=== PATIENT | female | born 1995 | race Caucasian/White ===

== ENCOUNTER → 2018-07-21 14:10 | Outpatient (CLI) | payer BC, SELFPAY ==
[2018-07-25 12:49] LABS: AFP, Serum 80.5 ng/mL; Calc Gestational Age 18.7; Cigarette Smoker NOT GIVEN; Donated Egg N; Donor Egg Age NOT GIVEN; Estriol, Free 1.52 ng/mL; Inhibin A, Dimeric 136 pg/mL; Maternal Weight 186 lbs; Number of Fetuses 1; Previous Pregnancy Down Syndro N; hCG, MoM 1.58; hCG, Serum 30.8 IU/mL
== END ==
PROVIDERS: Visit Provider Obstetrics & Gynecology
DX: Z34.92 Encounter for supervision of normal pregnancy, unspecified, second trimester (principal); Z3A.18 18 weeks gestation of pregnancy
CPT/HCPCS: 36415; 82105; 82677; 84702; 86336; 87086

== ENCOUNTER → 2018-08-04 09:25 | Outpatient (CLI) | payer BC, SELFPAY ==
--- NOTE | 2018-08-04 09:27 | DI.US.S_ITS ---
PROCEDURE: US OB >= 14 WEEKS FETUS INDICATIONS: anatomy survey OUTSIDE/PRIOR DATING DATA: Last menstrual period (LMP): 02/27/18. LMP-based estimated date of delivery (DEDRICK): 12/04/18. First dating scan (date and location): 04/25/18. Estimated date of delivery (DEDRICK) from first dating scan: 12/17/18, plus or -5 days, based on the reported early first trimester OB ultrasound performed at [facility]. TECHNIQUE: Real-time scanning was performed of the fetus, with image documentation and biometric measurements. Endovaginal scanning: Not needed for this study COMPARISON: [facility], , US OB >= 14 WEEKS FETUS, 07/21/2018, 13:58. FINDINGS: General: A single living intrauterine gestation is present. Presentation: Vertex. Placenta: Placental position is anterior, without previa. Amniotic fluid index: 14.4 cm, normal range is 5-24 cm. heart rate: 155 beats per minute. Maternal cervical canal: 4.6 cm long. Normal lower limit is 2.5 cm. biometrics: Biparietal diameter: 5.1 cm, 21 weeks 3 days Head circumference: 19.2 cm, 21 weeks 3 days Abdominal circumference: 15.5 cm, 20 weeks 5 days Femur length: 3.6 cm, 21 weeks 2 days Estimated gestational age from initial scan: 20 weeks 5 days Composite gestational age from present scan: 21 weeks 2 days Estimated weight and percentile: 393 g, 62nd percentile, there has been appropriate interval growth. Measurement variability for biometric dating: +/- 7 days from 14 weeks to 15 weeks 6 days gestation, +/- 10 days from 16 weeks to 21 weeks 6 days gestation, +/- 2 weeks from 22 weeks to 27 weeks 6 days gestation, +/- 3 weeks for 28 weeks gestation or later. weight reference: 4500 g or EFW >90/95% is considered macrosomia or large for gestational age. EFW <10% is small for gestational age. EFW 5% or less is considered intra-uterine growth restriction. Anatomic survey: Neuro: Ventricles are non-dilated at less than 10 mm. Cisterna magna is normal at 3-11 mm. Cerebellum is normal in size and morphology. Nuchal skin fold: Normal at less than 6 mm between 14-21 weeks gestational age. Face: Nose and lips, facial profile are normal. Spine: No evidence for spina bifida. Heart: 4-chambered heart is present, with normal ventricular outflow tracts. Diaphragm: Diaphragm is intact. Stomach: Left-sided stomach is present. Kidneys: No hydronephrosis. Normal is less than 5 mm in 2nd trimester, less than 7 mm in 3rd trimester. Cord: 3-vessel cord has orthotopic insertion. Bladder: Normal in size. Extremities: All 4 extremities identified. IMPRESSION: Appropriate interval growth, no anomaly seen, the delivery date is projected to be centered on 12/17/18, plus or -5 days, based on the early first trimester OB ultrasound from [facility]. Dictated by: Jani Valladares M.D. on 08/04/2018 at 11:40 Approved by: aJni Valladares M.D. on 08/04/2018 at 11:45
== END ==
PROVIDERS: Family Provider Physician Assistant Medical; Visit Provider Obstetrics & Gynecology
DX: Z34.02 Encounter for supervision of normal first pregnancy, second trimester (principal); Z3A.21 21 weeks gestation of pregnancy
CPT/HCPCS: 76811

== ENCOUNTER → 2018-08-26 10:35 | Outpatient (CLI) | payer BC, SELFPAY ==
[2018-08-26 12:17] LABS: Hematocrit 32.1 % (36-46)
[2018-08-26 13:40] LABS: GTT (PREG) 1 Hour PP 50gm Dose 104 mg/dL (76-139)
[2018-08-26 15:27] LABS: Urine N gonorrhoeae NOT DETECTED
[2018-08-26 15:33] LABS: Urine Chlamydia NOT DETECTED
== END ==
PROVIDERS: Family Provider Physician Assistant Medical; Visit Provider Obstetrics & Gynecology
DX: Z34.92 Encounter for supervision of normal pregnancy, unspecified, second trimester (principal); Z34.02 Encounter for supervision of normal first pregnancy, second trimester
CPT/HCPCS: 36415; 82950; 85014; 85018; 86787; 87491; 87591

== ENCOUNTER 2018-10-27 15:06 | Observation (INO) | payer BC, SELFPAY | END 2018-10-27 15:51 | disposition home or self-care (01) | PROVIDERS: Admitting Provider Obstetrics & Gynecology; Family Provider Physician Assistant Medical; Visit Provider Obstetrics & Gynecology | DX: O26.843 Uterine size-date discrepancy, third trimester; Z3A.32 32 weeks gestation of pregnancy | CPT/HCPCS: 59025; G0378; G0379 ==

== ENCOUNTER 2018-11-03 08:55 | Outpatient (CLI) | payer BC, SELFPAY ==
--- NOTE | 2018-11-03 10:10 | PM.OBTRLD ---
Visit Information Visit Information Date of evaluation: 11/03/18 Reason for Evaluation: Yes non-stress test Vital Signs Vital Signs: NST for patient done today. Reactive category 1.
== END 2018-11-03 10:00 | disposition home or self-care (01) ==
LOC: LABOR 10:11 → OB 15:16
PROVIDERS: Family Provider Physician Assistant Medical; Visit Provider Obstetrics & Gynecology
DX: Z36.9 Encounter for antenatal screening, unspecified (principal); Z3A.33 33 weeks gestation of pregnancy
CPT/HCPCS: 59025; G0378; G0379

== ENCOUNTER 2018-11-11 13:51 | Outpatient (CLI) | payer BC, SELFPAY | END 2018-11-11 14:40 | disposition home or self-care (01) | LOC: LABOR 14:22 → OB 11-12 12:53 | PROVIDERS: Visit Provider Obstetrics & Gynecology | DX: Z34.03 Encounter for supervision of normal first pregnancy, third trimester (principal); Z3A.35 35 weeks gestation of pregnancy | CPT/HCPCS: 59025; 87653; G0378; G0379 ==

== ENCOUNTER → 2018-11-11 14:46 | Outpatient (CLI) | payer BC, SELFPAY ==
[2018-11-12 12:36] LABS: Strep Grp B PCR NEG for Grp B Strep
== END ==
PROVIDERS: Visit Provider Obstetrics & Gynecology
DX: Z34.03 Encounter for supervision of normal first pregnancy, third trimester (principal)
CPT/HCPCS: 87653

== ENCOUNTER 2018-11-17 09:23 | Outpatient (CLI) | payer BC, SELFPAY ==
--- NOTE | 2018-11-17 10:32 | PM.OBTRLD ---
Visit Information Visit Information Date of evaluation: 11/17/18 Primary OB Provider: Aditi Menesse On-call OB Provider: Luz Maria De La Rosa Reason for Evaluation: Yes non-stress test non-stress test reason: other (hx of demise) Evaluation Evaluation Baseline heart rate: 130 Variability: Moderate (11-25) monitor accelerations: Present monitor decelerations: Absent Category of Tracing: I Diagnosis, Plan/Disposition Final Diagnosis (1) Prior with demise: Current Visit: No Status: Chronic Plan/Disposition Plan: Reactive NST today Continue regular NSTs F/U with primary OB as scheduled OB Disposition: home
== END 2018-11-17 10:32 | disposition home or self-care (01) ==
LOC: LABOR 09:40 → OB 11-18 16:38
PROVIDERS: Visit Provider Obstetrics & Gynecology
DX: O09.293 Supervision of pregnancy with other poor reproductive or obstetric history, third trimester (principal); Z3A.35 35 weeks gestation of pregnancy
CPT/HCPCS: 59025; G0378; G0379

== ENCOUNTER 2018-11-26 10:39 | Outpatient (CLI) | payer OTHER, SELFPAY | END 2018-11-26 11:40 | disposition home or self-care (01) | LOC: LABOR 10:58 → OB 12-02 07:43 | PROVIDERS: Visit Provider Obstetrics & Gynecology | DX: O09.293 Supervision of pregnancy with other poor reproductive or obstetric history, third trimester (principal); Z3A.37 37 weeks gestation of pregnancy | CPT/HCPCS: 59025; G0378; G0379 ==

== ENCOUNTER 2018-12-03 14:52 | Outpatient (CLI) | payer OTHER, SELFPAY | END 2018-12-03 15:46 | disposition home or self-care (01) | LOC: OB 12-09 13:05 | PROVIDERS: Visit Provider Obstetrics & Gynecology | DX: Z34.03 Encounter for supervision of normal first pregnancy, third trimester (principal); Z3A.38 38 weeks gestation of pregnancy | CPT/HCPCS: 59025; G0378; G0379 ==

== ENCOUNTER 2018-12-08 10:52 | Outpatient (CLI) | payer BC, SELFPAY ==
--- NOTE | 2018-12-08 18:24 | PM.OBTRLD ---
Visit Information Visit Information Date of evaluation: 12/08/18 Primary OB Provider: Aditi Meneses Reason for Evaluation: Yes non-stress test non-stress test reason: other (history of stillbirth) Evaluation Evaluation Baseline heart rate: 145 Variability: Moderate (11-25) monitor accelerations: Present monitor decelerations: Absent Category of Tracing: I Diagnosis, Plan/Disposition Final Diagnosis (1) 38 weeks gestation of : Current Visit: No Status: Acute (2) Prior with demise: Current Visit: No Status: Acute Plan/Disposition Plan: Discharge to home Follow up as scheduled for routine OB appointment [facility] reviewed. OB Disposition: home
== END 2018-12-08 11:37 | disposition home or self-care (01) ==
LOC: LABOR 11:32 → OB 12-09 13:07
PROVIDERS: Visit Provider Obstetrics & Gynecology
DX: O09.299 Supervision of pregnancy with other poor reproductive or obstetric history, unspecified trimester (principal); Z3A.38 38 weeks gestation of pregnancy
CPT/HCPCS: 59025; G0378; G0379

== ENCOUNTER 2018-12-11 05:34 | Inpatient (IN) | payer BC, SELFPAY ==
[2018-12-11] MEDS: LACTATED RINGERS 1,000 ML 999 ML IV ×2 (06:15→06:55)
[2018-12-11 06:58] LABS: Add Manual Diff / Slide Review NO; Basophils Absolute Auto 100 /uL (0-100); Basophils Percent Auto 0.7 % (0-2); Eosinophils Absolute Auto 0 /uL (0-450); Eosinophils Percent Auto 0.6 % (2-4); Hemoglobin 10.5 g/dL (12.0-16.0); Lymphocytes Absolute Auto 1500 /uL (1100-4500); Lymphocytes Percent Auto 18.3 % (25-40); Mean Corpuscular Hemoglobin 26.2 PG (26-34); Mean Corpuscular Volume 79.3 fL (80-100); Monocytes Absolute Auto 700 /uL (0-900); Monocytes Percent Auto 7.9 % (3-14); Neutrophils Absolute Auto 6000 /uL (1500-7000); Neutrophils Percent Auto 72.5 % (50-75); Platelet Count 232 X10^3/uL (150-400); Red Blood Cell Count 4.03 X10^6/uL (4.0-5.2); Red Cell Distribution Width 14.3 % (11.6-14.8); White Blood Cell Count 8.3 X10^3/uL (4.5-11.0)
--- NOTE | 2018-12-11 07:16 | PM.PREOP ---
Pre-operative Note Interval Note History & Physical reviewed/Exam performed by Physician: Yes Changes to H&P: No
--- NOTE | 2018-12-11 09:23 | P.OP_ITS ---
Operative Date/Time/Diagnoses Date of procedure: 12/11/18 Time of procedure: 09:19 Pre-op diagnosis: Thirty-nine weeks gestation History of demise at 23 weeks Desires primary section Post-op diagnosis: same Procedure: Primary low-transverse section Indications: Thirty-nine weeks gestation History of demise at 23 weeks Desires primary section Surgeon: Aditi Meneses Logging Rafter Laborer: Juan Villa Anesthesia Type: Spinal (With Duramorph) Operative Notes Findings: Live male in the left occiput posterior presentation Normal uterus, tubes, and ovaries Closure Type: primary Specimen(s): other (Cord bloods, placenta) Applied: catheter (Beck to continuous drainage) Estimated blood loss (mL): 600 Blood products transfused: none Procedure in detail: The patient was taken to the operating room where she was placed in the seated position. Spinal anesthesia with Duramorph was administered. She was then placed in the dorsal supine position with a leftward tilt. She was prepped and draped in the usual sterile fashion. A timeout was performed. After spinal analgesia was found to be adequate, a Pfannenstiel skin incision was made 2 fingerbreadths above the pubic symphysis and carried through to the underlying layer fascia. The fascia was nicked in the midline, and the incision extended bilaterally with the Alexandre scissors. The superior aspect of the fascial incision was grasped with a Funmilayo clamps, elevated, and the und erlying rectus muscles dissected off sharply and bluntly. Attention was then turned to the inferior aspect of this incision which in a similar fashion was grasped with a Funmilayo clamps, elevated, and the underlying rectus muscles dissected off sharply and bluntly. The rectus muscles were in the midline. The peritoneum was identified, grasped between 2 hemostats, and entered sharply with the Metzenbaum scissors. This incision was extended superiorly and inferiorly with good visualization of the bladder. The bladder blade was inserted. The vesicouterine peritoneum was identified, grasped with the pickup, and entered sharply with the Metzenbaum scissors. This incision was extended bilaterally, and the bladder flap was created digitally. The bladder blade was reinserted. The lower uterine segment was incised in a transverse fashion with the scalpel. Upon entering the amniotic sac there was a large amount of clear amniotic fluid. The infant's head was delivered with vacuum assistance. The uterine incision was T'd. The nose and mouth were suctioned with bulb suction. The remainder of the body delivered without difficulty. The cord was double clamped and cut. The infant was handed off to waiting RN and RT. The placenta was delivered manually. The uterus was cleared of all clots and debris. The extension of the uterus was closed in 2 layers with 1. Chromic. The uterine incision was repaired with #1 chromic in a running interlocking fashion, and a second layer the same suture was used for an imbricating layer. Hemostasis was achieved. The tubes and ovaries were examined and were found to be normal. The gutters were cleared of all clots and debris. The bladder flap was reapproximated using 2-0 Vicryl in a running fashion. The parietal peritoneum was closed using 2-0 Vicryl in a running fashion. The fascia was reapproximated using 0 Vicryl in a running fashion. Subcutaneous layer was copiously irrigated with warm normal saline. Six simple interrupted sutures of 3-0 Vicryl were placed to reapproximate the subcutaneous layer. The skin was closed with 4-0 undyed Vicryl in a subcuticular fashion. Steri-Strips were placed. An Aquacel dressing was placed. The uterus was expressed of a small amount of old blood. Sponge, lap, and instrument counts were correct x-2. The patient tolerated the procedure well, and was taken to PACU in stable condition. Complications: none Post-operative Condition: stable Disposition: PACU Plan for aftercare: To Center after recovery
[2018-12-11] MEDS: LACTATED RINGERS 1,000 ML 100 ML IV (10:10)
[2018-12-11] MEDS: OXYCODONE/ACETAMINOPHEN 5/325 TABLET 2 TAB PO ×4 (12:15→21:04)
[2018-12-11] MEDS: KETOROLAC 30 MG/ML VIAL IV ×2 (17:02→23:27)
[2018-12-12] MEDS: OXYCODONE/ACETAMINOPHEN 5/325 TABLET 2 TAB PO ×3 (02:45→11:47)
[2018-12-12] MEDS: KETOROLAC 30 MG/ML VIAL IV (05:25)
[2018-12-12 06:46] LABS: Hematocrit 24.4 % (36-46); Hemoglobin 8.2 g/dL (12.0-16.0)
[2018-12-12] MEDS: DOCUSATE 250 MG CAPSULE PO (07:45)
[2018-12-12] MEDS: IBUPROFEN 600 MG TABLET PO ×3 (11:48→23:50)
--- NOTE | 2018-12-12 14:31 | PM.OBPN.1 ---
Subjective - OB Patient comments: no complaints and incisional pain baby status: doing well and nursing well feeding status: exclusively breast feeding Narrative: some problems with Jaundice Interval history: Patient one day post section and doing well. Patient is a small amount of left-sided incisional pain. Patient has an Aquacel dressing. She is afebrile stable vital signs. She is ambulating well. She is taking p.o. well. Exam Narrative Exam Narrative: Fundus U minus two Incision covered by Aquacel dressing Lochia scant Objective Labs Result Diagrams: 12/12/18 06:22 Labs: Laboratory Results - last 24 hr 12/12/18 06:22 Hgb 8.2 L Hct 24.4 L Assessment & Plan Plan day: 1 plan OB: routine postop care Time Spent With Patient Total time spent is greater than 50% in coordination of care (as documented) at patient's floor/unit and/or counseling patient: less than 15 minutes
[2018-12-12] MEDS: OXYCODONE IR 5 MG TABLET 10 MG PO ×3 (16:05→22:44)
[2018-12-12] MEDS: LANOLIN OINT 7 GM 1 APPLIC TOP (16:06)
[2018-12-12 18:20] VITALS: BP 133/75
[2018-12-12] MEDS: ACETAMINOPHEN 325 MG TABLET 650 MG PO (22:59)
[2018-12-13] MEDS: OXYCODONE IR 5 MG TABLET 10 MG PO ×4 (01:42→11:19)
[2018-12-13] MEDS: ACETAMINOPHEN 325 MG TABLET 650 MG PO ×2 (04:40→11:19)
[2018-12-13] MEDS: IBUPROFEN 600 MG TABLET PO (06:25)
[2018-12-13] MEDS: PRENATAL VIT,CALC/IRON/FOLIC 1 TABLET 1 TAB PO (08:13)
[2018-12-13] MEDS: DOCUSATE 250 MG CAPSULE PO (08:13)
--- NOTE | 2018-12-13 08:32 | PM.OBDS.1 ---
Discharge Providers Date of admission: 12/11/18 05:34 Discharge Date: 12/13/18 Primary care physician: Aditi Meneses Consults: 12/11/18 10:34 Consult to Apparel Sales Associate Routine Comment: Discharge provider: Virgilio Sherwood MD Summary Date Patient Seen: 12/13/18 Time Patient Seen: 08:38 Procedures: Spinal anesthesia Repeat section, Rainey type Hospital Course: The patient is a 23-year-old two now para one with a history of a 23 week demise. The patient elected to have a primary section because her prior history. She was taken to surgery where she underwent a primary low segment section occurred type. Her course was uneventful. She remained afebrile stable vital signs and was progressively element and ambulated. Peripartum Data Delivery Method: Section Procedures: Primary low segment section complications: none Status at Discharge Cognitive/behavioral status at discharge: oriented Functional status at discharge: independent ambulation Overall status at discharge: patient is progressing back to baseline Time Spent with Patient Total time spent providing and/or coordinating discharge services: Less than 30 minutes Objective Labs Result Diagrams: 12/12/18 06:22 Exam Narrative Exam Narrative: HEENT within normal limits Chest clear percussion auscultation Cardiovascular system normal sinus rhythm Fundus is U minus three Incision covered with an Aquacel dressing Lochia scant Discharge Plan Discharge Plan Patient Disposition: Home Discharge comment: Call with fever, chills, redness or drainage around incisions or bleeding vaginally more than a pad in an hour Discharge Med Rec/Prescriptions Prescriptions: New oxycodone-acetaminophen [Percocet] 5-325 mg tablet 1 tab PO Q4-6H PRN (Reason: pain) Qty: 30 RF: 0 docusate sodium [Colace] 100 mg capsule 100 mg PO BEDTIME Qty: 20 RF: 2 ibuprofen 600 mg tablet 600 mg PO TID Qty: 20 RF: 2 docusate sodium [Colace] 100 mg capsule 100 mg PO BEDTIME Qty: 20 RF: 2 docusate sodium 250 mg Capsule 250 mg PO DAILY Qty: 10 RF: 0 ferrous gluconate 324 mg (38 mg iron) Tablet 324 mg PO DAILY Qty: 60 RF: 0 ibuprofen 600 mg Tablet 600 mg PO Q6HR PRN (Reason: As Needed For Fever/Mild Pain) Qty: 20 RF: 0 Jwk-P-Vfdvtg Cream 1 applic topical PRN PRN (Reason: ) Qty: 1 RF: 0 oxycodone 5 mg Tablet 10 mg PO Q3HR PRN (Reason: Pain, Severe (7-10)) Qty: 20 RF: 0 Prenatabs Rx 29 mg iron- 1 mg Tablet 1 tab PO DAILY Qty: 60 RF: 0 Continued albuterol sulfate [Ventolin HFA] 90 mcg/actuation HFA aerosol inhaler 1 puff INHALATION Q6H PRN (Reason: Shortness Of Breath) RF: 0 prenat.vits,esteban,ocy-xxpt-otyyl tablet 1 tab PO DAILY RF: 0 buspirone 10 mg Tablet 20 mg PO BID RF: 0 Double Electric Breast Pump packet RF: 0 Discontinued triamcinolone acetonide 0.1 % lotion 1 applictn TOP DAILY RF: 0 Follow up/Referrals: Virgilio Sherwood MD [Physician] - Nova Rojas PA-C [Primary Care Provider] - Aditi Meneses MD [Physician] - 1 Week Provider Discharge Instructions Diet: Diet as Tolerated Activity: Up ad dejon Skin/Wound/Dressing Care Report to your healthcare provider any signs of infection, such as:: chills, fever, increased pain, unusual drainage and unusual redness Dressing: Aquacel dressing Other wound treatment: None Discharge Data Primary Care Provider: Nova Rojas Attending Provider: Aditi Meneses Admit Date/Time: 12/11/18 05:34
[2018-12-13 09:36] VITALS: BP 130/88; PULSE 87; RESP 16; TEMP 37
== END 2018-12-13 12:26 | disposition home or self-care (01) | DRG 788 ==
PROVIDERS: Admitting Provider Obstetrics & Gynecology; PCP Physician Assistant Medical; Visit Provider Obstetrics & Gynecology
DX: O26.893 Other specified pregnancy related conditions, third trimester (principal); Z3A.39 39 weeks gestation of pregnancy; Z37.0 Single live birth
CPT/HCPCS: 36415; 59050; 59510; 59514; 85014; 85018; 85025; 86850; 86900; 86901; G0379; J0690; J1200; J1885; J2274; J2590; J3010

== ENCOUNTER → 2020-04-11 15:23 | Outpatient (CLI) | payer BC, SELFPAY ==
--- NOTE | 2020-04-11 | DI.CT.S_ITS ---
PROCEDURE: CT SINUS SCREEN WO CON INDICATIONS: Other chronic sinusitis TECHNIQUE: Noncontrast 3.0 mm axial images acquired from the frontal sinuses to the mid-sella, with coronal and sagittal reformats. For radiation dose reduction, the following was used: automated exposure control, adjustment of mA and/or kV according to patient size. COMPARISON: None. FINDINGS: Image quality: Excellent. Maxillary Sinuses: No bony remodeling or destruction. Sinuses are clear. Ethmoid Air Cells: No bony remodeling or destruction. Sinuses are clear. Sphenoid Sinuses: No bony remodeling or destruction. Sinuses are clear. Frontal Sinuses: No bony remodeling or destruction. Sinuses are clear. Ostiomeatal Complexes: Ostiomeatal complexes are patent. No Hailey cells. Miscellaneous: Visualized intra-orbital contents are normal. No serge bullosa or paradoxical turbinate curvature. No nasal septal deviation. IMPRESSION: No findings of acute or chronic sinusitis. Dictated by: Sourav Pate M.D. on 04/11/2020 at 15:41 Approved by: Sourav Pate M.D. on 04/11/2020 at 15:42
== END ==
PROVIDERS: PCP Physician Assistant Medical; Referring Provider Otolaryngology; Visit Provider Otolaryngology
DX: J32.8 Other chronic sinusitis (principal)
CPT/HCPCS: 70486

== ENCOUNTER → 2020-05-09 13:40 | Outpatient (CLI) | payer BC, SELFPAY ==
[2020-05-11 13:59] LABS: Add Manual Diff / Slide Review NO; Basophils Absolute Auto 0 /uL (0-100); Basophils Percent Auto 0.5 % (0-2); Eosinophils Absolute Auto 100 /uL (0-450); Eosinophils Percent Auto 1.9 % (2-4); Hematocrit 36.5 % (36-46); Hemoglobin 12.1 g/dL (12.0-16.0); Lymphocytes Absolute Auto 1800 /uL (1100-4500); Lymphocytes Percent Auto 31.9 % (25-40); Mean Corpuscular HGB Conc 33.2 % (30-36); Mean Corpuscular Hemoglobin 29.9 PG (26-34); Mean Corpuscular Volume 90.2 fL (80-100); Monocytes Absolute Auto 400 /uL (0-900); Neutrophils Absolute Auto 3200 /uL (1500-7000); Neutrophils Percent Auto 57.7 % (50-75); Platelet Count 216 X10^3/uL (150-400); Red Blood Cell Count 4.05 X10^6/uL (4.0-5.2); Red Cell Distribution Width 14.1 % (11.6-14.8); White Blood Cell Count 5.6 X10^3/uL (4.5-11.0)
[2020-05-12 08:12] LABS: Immunoglobulin A 179 mg/dL (87-352); Immunoglobulin G, Quantitative 866 mg/dL (586-1602); Immunoglobulin M, Quantitative 95 mg/dL (26-217)
[2020-05-14 19:27] LABS: Immunoglobulin E 10 IU/mL (6-495)
== END ==
PROVIDERS: PCP Physician Assistant Medical
DX: L27.2 Dermatitis due to ingested food (principal); H65.90 Unspecified nonsuppurative otitis media, unspecified ear
CPT/HCPCS: 36415; 82784; 82785; 83516; 85025; 86003; 86317; 86355; 86357; 86359

== ENCOUNTER → 2020-06-22 09:36 | Outpatient (CLI) | payer BC, SELFPAY ==
[2020-06-22 11:05] LABS: COVID19 -Nasal RAPID Negative (Negative)
== END ==
PROVIDERS: PCP Physician Assistant Medical; Visit Provider Physician Assistant
DX: Z11.59 Encounter for screening for other viral diseases (principal)
CPT/HCPCS: 87635

== ENCOUNTER 2020-06-23 10:06 | Day surgery (SDC) | payer BC, SELFPAY ==
[2020-06-21 13:51] VITALS: BMI 30.6
[2020-06-23] VITALS (16 sets, daily range): BP systolic 106–136; BP diastolic 63–90; PULSE 72–124; RESP 8–96; TEMP 36.2–37.2; O2SAT 12–100; BMI 32.3
[2020-06-23] MEDS: LACTATED RINGERS 1,000 ML 42 ML IV ×2 (10:46→13:22)
--- NOTE | 2020-06-23 11:59 | PM.PREOP ---
Pre-operative Note COVID-19 COVID-19 status: Negative Result date/Date tested (Pos, Neg/Pending): 06/22/20 Interval Note History & Physical reviewed/Exam performed by Physician: Yes Changes to H&P: No
--- NOTE | 2020-06-23 12:01 | PM.HP.1 ---
History of Present Illness History of Present Illness Date Patient Seen: 06/23/20 Time Patient Seen: 12:01 Chief complaint: Chronic tonsillitis, tonsil stones, halitosis Narrative: 24-year-old female with a history of chronic tonsillitis, tonsil stones, halitosis, and throat pain, presents for tonsillectomy and possible adenoidectomy. No interval health changes, denies current cough, cold, or fever. Patient History Medical History Earache Facial pain Halitosis Hearing loss Sinusitis Tonsil stone Surgical History S/P section (12/11/18) Family & Social History Social History: household members significant other,children Tobacco & Substance use: Tobacco type cigarettes Smoking Status Former smoker alcohol intake current alcohol intake frequency holiday/special occasion Substance Use Type does not use Meds Home Medications and Allergies Home Medications Medication Instructions Recorded Confirmed Type albuterol sulfate 90 mcg/actuation 1 puff INHALATION Q6H PRN 06/17/18 06/23/20 History aerosol inhaler vit,rhzw10-phsm-jcyko 1 tab PO DAILY #60 tab 12/13/18 06/23/20 Rx [Prenatabs Rx] norethindrone (contraceptive) 0.35 0.35 mg PO DAILY #84 tab 01/01/20 06/23/20 Rx mg tablet divalproex 1,500 mg PO QPM 06/21/20 06/23/20 History nifedipine [Procardia] 10 mg PO QPM 06/21/20 06/23/20 History dextroamphetamine-amphetamine 10 mg PO DAILY 06/23/20 06/23/20 History epinephrine 0.3 mg IM PRN PRN 06/23/20 06/23/20 History Allergies Allergy/AdvReac Type Severity Reaction Status Date / Time gluten Allergy Severe Anaphylaxis Verified 12/11/18 14:49 sumatriptan Allergy Severe Hives, Verified 06/21/20 14:00 throat closing venlafaxine [From Effexor] Allergy Severe Hives, Verified 06/21/20 14:00 throat closing, fever beef derived (bovine) Allergy Intermediate Hives Verified 12/11/18 14:49 codeine Allergy Intermediate Verified 12/11/18 04:13 [From Tylenol-Codeine #3] milk Allergy Intermediate Hives Verified 12/11/18 14:49 Sulfa (Sulfonamide Allergy Mild Rash Verified 06/21/20 14:00 Antibiotics) levonorgestrel AdvReac Mood swings Verified 06/21/20 14:00 Review of Systems Review of Systems ROS: Yes All systems reviewed with the patient and are negative except as otherwise documented Exam Vital Signs (past 8 hours): - 06/23/20 10:47 Temperature 98.9 F Pulse Rate 72 Respiratory Rate 16 Blood Pressure 110/76 Pulse Oximetry 100 Oxygen Delivery Method Room Air Narrative Exam Narrative: Well-developed well-nourished female heart regular rate and rhythm without murmur, lungs clear to auscultation bilaterally Assessment & Plan Assessment & Plan narrative: Assessment: Chronic tonsillitis, tonsil stones, throat pain, halitosis Plan: Following discussion of the material risks benefits complications and alternatives, the patient elected to proceed with tonsillectomy and possible adenoidectomy as an outpatient.
--- NOTE | 2020-06-23 12:03 | PM.OP.1 ---
Operative Date/Time/Diagnoses Date of procedure: 06/23/20 Time of procedure: 12:59 Pre-op diagnosis: Chronic tonsillitis with tonsil stones, halitosis, throat pain Post-op diagnosis: same Procedure & Clinicians Procedure: Tonsillectomy Same procedure as scheduled: Yes Indications: 24-year-old female with the above diagnoses incompletely managed with medical therapy presents for the above procedure. Following discussion of the material risks benefits complications and alternatives, she elected to proceed. Surgeon: Corby Wang Click Yes if Unassisted: Yes Anesthesia Type: General and Local Operative Notes Findings: Intact palate, single uvula, 2+ tonsils with stones, absent adenoids Closure Type: not applicable Specimen(s): none sent Estimated Blood Loss (mL): 20 Blood products transfused: none Procedure in detail: Following identification and confirmation of consent the patient was brought to the operating room suite and placed in the supine position. General endotracheal anesthesia was administered. A head wrap, shoulder roll, and mouth gag were placed and a red rubber catheter was inserted through the nostril and out the mouth to retract the soft palate. There was no significant adenoid tissue. The left tonsil was retracted medially and suction electrocautery on a setting of 30 was used to dissect the tonsil in a subcapsular plane, followed by hemostasis with the same. This process was repeated on the right side with identical findings. The tonsillar fossae were superficially infiltrated bilaterally with a 1:1 mixture of 1% lidocaine 1 100,000 epinephrine and 0.25% Marcaine 1 to 116285 epinephrine. Mouth gag and rubber catheter were removed and the patient was extubated in the operating room and taken to the recovery room in stable condition without known complication. Complications: none Post-operative Condition: stable Disposition: same day surgery Plan for aftercare: Soft diet 2 weeks, alternate Tylenol and Advil every 3 hours, oxycodone for breakthrough pain, follow-up in 3 weeks if desires.
--- NOTE | 2020-06-23 12:27 | SUR.OPER ---
Supine on padded OR bed, head on pillow, arms secured on padded arm boards at <90 degrees abduction, legs uncrossed, safety belt at thigh, tape over blanket over lower legs.
[2020-06-23] MEDS: LIDOCAINE 1% W/EPI 20 ML INJ (12:32)
[2020-06-23] MEDS: BUPIVACAINE 0.25% W/ EPI 30 ML VIAL INJ (12:33)
[2020-06-23] MEDS: fentaNYL 100 MCG/2 ML INJ IV (13:16)
--- NOTE | 2020-06-23 13:41 | SUR.PHASEI ---
Addendum entered by Joanne Medley R.N. 06/23/20 13:57: Dr. Glaser saw patient and gave orders for 0.5mg ativan IV. Given per order. Patient already slowing breathing and relaxing more. States she feels better, but is still anxious. Original Note: Patient crying and hyperventilating sitting up in bed. States she has a history of panic attacks. Attempting to reach anesthesiologist to inform oh panic attack. Remains stable at this time.
[2020-06-23] MEDS: HYDROMORPHONE 2 MG INJ IV ×2 (13:49→13:56)
[2020-06-23] MEDS: LORazepam 2 MG/ML INJ (13:55)
--- NOTE | 2020-06-23 14:55 | SUR.PHASEI ---
Pt with small amount serosangenous drng early during PACU stay. No drng upon discharge. Pt states she still feels anxious, but much better.
--- NOTE | 2020-06-23 15:31 | SUR.PHASEII ---
Pt given ice pop, states pain now tolerable, feels less anxious. Significant other brought in, d/c instructions discussed both voiced an understanding. Pt dressed when ready and left in stable condition.
== END 2020-06-23 15:18 | disposition home or self-care (01) ==
PROVIDERS: PCP Physician Assistant Medical; Referring Provider Otolaryngology; Visit Provider Otolaryngology
PROC: (CPT 42826; principal; 2020-06-23 11:30)
DX: J35.01 Chronic tonsillitis (principal); J35.8 Other chronic diseases of tonsils and adenoids; R19.6 Halitosis
CPT/HCPCS: 42826; 81025; J0330; J1100; J1170; J2060; J2250; J2405; J2704; J3010

== ENCOUNTER → 2024-04-27 15:50 | Outpatient (CLI) | payer OTHER, MEDICAID, SELFPAY ==
[2024-04-27 16:39] LABS: Influenza A - CEPHEID Flu A NEGATIVE (NEGATIVE); Influenza B - CEPHEID Flu B NEGATIVE (NEGATIVE); Respiratory Syncytial Virus Negative (Negative)
[2024-04-27 16:42] LABS: COVID-19 CEPHEID 4-PLEX PCR Negative (Negative)
== END ==
PROVIDERS: PCP Physician Assistant Medical; Visit Provider Physician Assistant Surgical
DX: R05.1 Acute cough (principal)
CPT/HCPCS: 87635; 87400 ×2; 87420; 0241U; 81025

== ENCOUNTER 2024-05-02 09:55 | Emergency (ER) | payer OTHER, MEDICAID, SELFPAY ==
[2024-05-02] VITALS (15 sets, daily range): BP systolic 89–117; BP diastolic 51–73; PULSE 67–93; RESP 17; TEMP 37.2; O2SAT 96–100
[2024-05-02] MEDS: ONDANSETRON 4 MG/2 ML INJ IV (10:32)
[2024-05-02 10:46] LABS: Add Manual Diff / Slide Review NO; Basophils Absolute Auto 0 /uL (0-100); Basophils Percent Auto 0.5 % (0-2); Eosinophils Absolute Auto 100 /uL (0-450); Eosinophils Percent Auto 0.7 % (2-4); Hematocrit 37.2 % (36-46); Hemoglobin 12.6 g/dL (12.0-16.0); Lymphocytes Absolute Auto 1100 /uL (1100-4500); Lymphocytes Percent Auto 14.9 % (25-40); Mean Corpuscular HGB Conc 33.9 % (30-36); Mean Corpuscular Hemoglobin 30.1 PG (26-34); Mean Corpuscular Volume 88.7 fL (80-100); Monocytes Absolute Auto 500 /uL (0-900); Monocytes Percent Auto 6.5 % (3-14); Neutrophils Absolute Auto 5500 /uL (1500-7000); Neutrophils Percent Auto 77.4 % (50-75); Platelet Count 264 X10^3/uL (150-400); Red Blood Cell Count 4.19 X10^6/uL (4.0-5.2); Red Cell Distribution Width 13.3 % (11.6-14.8); White Blood Cell Count 7.2 X10^3/uL (4.5-11.0)
[2024-05-02 10:58] LABS: Alanine Aminotransferase 14 IU/L (<35); Albumin 4.3 g/dL (3.5-5.0); Albumin Globulin Ratio 1.8 (1.0-2.8); Alkaline Phosphatase 58 U/L (38-126); Aspartate Aminotransferase 23 IU/L (14-36); BUN Creatinine Ratio 13.3 (6-22); Bilirubin Total 1.8 mg/dL (0.2-1.3); Blood Urea Nitrogen 11 mg/dL (7-17); Calcium 9.1 mg/dL (8.4-10.2); Carbon Dioxide 27 mmol/L (22-32); Chloride 105 mmol/L (98-107); Estimated Glomerular Filt Rate > 60 mL/min (>60); Globulin 2.4 g/dL (1.7-4.1); Glucose 96 mg/dL (70-100); HEMOLYSIS < 15 (0-50); Sodium 139 mmol/L (137-145); Total Protein 6.7 g/dL (6.3-8.2)
[2024-05-02 11:14] LABS: Bacteria Urine Few (2-10); Culture Indicated Urine Cult Not Indicated; RBC Urine 1-5/HPF (0-5/HPF); Squamous Epithelial Cell Urine 1-5 /HPF (0-5/HPF); Urine Volume 10mL (spun); WBC Urine 0-1/HPF (0-5/HPF)
[2024-05-02 11:14] LABS: HCG Quantitative /Beta subunit < 2.39 mIU/mL
--- NOTE | 2024-05-02 11:40 | ED_ITS ---
HPI - Female Genitourinary General Chief complaint: Vaginal Bleeding Stated complaint: Early Preg, Miscarriage Time Seen by Provider: 05/02/24 11:39 Source: patient Mode of arrival: Ambulatory History of Present Illness HPI Narrative: Patient 28-year-old female history of PCOS presents today with vaginal bleeding and pain. She reports that she has been feeling nauseous not feeling well a week. She was seen evaluated walk-in clinic on April 27, at that time she was there for nausea and vomiting and headache she had negative test and negative viral panel. 2 days ago she reports that she had 3 positive tests from 3 different companies. However today she woke up with pain and bleeding. Reports irregular periods at baseline. Her last menstrual cycle was March 25. She feels a little lightheaded. She reports that she is only changed her pad once since this morning. Continues to feel nauseous dry heaving. Related Data Home Medications Medication Instructions Recorded Confirmed albuterol sulfate 90 mcg/actuation 1 puff inhalation Q6H PRN 06/17/18 04/27/24 aerosol inhaler (Ventolin HFA) Shortness Of Breath epinephrine 0.3 mg/0.3 mL 0.3 mg IM PRN PRN Anaphylaxis 06/23/20 04/27/24 injection, auto-injector dextroamphetamine-amphetamine 20 20 mg PO BID 10/03/21 04/27/24 mg tablet (Adderall) lurasidone 60 mg tablet (Latuda) 60 mg PO DAILY 10/03/21 04/27/24 metaxalone 800 mg tablet 800 mg PO ONCE 10/03/21 04/27/24 pregabalin 300 mg capsule (Lyrica) 300 mg PO BID 10/03/21 04/27/24 trazodone 100 mg tablet 100 mg PO BEDTIME PRN 10/03/21 04/27/24 acyclovir 800 mg tablet 800 mg PO DAILY 04/27/24 05/02/24 Previous Rx's Medication Instructions Recorded vitamin 1 tab PO DAILY #60 tabs 12/13/18 no.76-iron,carbonyl 29 mg iron-folic acid 1 mg tablet (Prenatabs Rx) levonorgestrel 0.15 mg-ethinyl 1 tab PO DAILY #84 tabs 10/03/21 estradiol 0.03 mg tablet (Wampum 28) ondansetron 4 mg disintegrating 4 mg PO Q8H PRN nausea and 05/02/24 tablet vomiting #10 tabs Allergies Allergy/AdvReac Type Severity Reaction Status Date / Time gluten Allergy Severe Anaphylaxis Verified 05/02/24 10:19 sumatriptan Allergy Severe Hives, Verified 05/02/24 10:19 throat closing venlafaxine [From Effexor] Allergy Severe Hives, Verified 05/02/24 10:19 throat closing, fever beef derived (bovine) Allergy Intermediate Hives Verified 05/02/24 10:19 codeine Allergy Intermediate Verified 05/02/24 10:19 [From Tylenol-Codeine #3] milk Allergy Intermediate Hives Verified 05/02/24 10:19 Sulfa (Sulfonamide Allergy Mild Rash Verified 05/02/24 10:19 Antibiotics) levonorgestrel AdvReac Mood swings Verified 05/02/24 10:19 Patient History Medical History Halitosis Tonsil stone Earache Facial pain Sinusitis Hearing loss Surgical History S/P section (12/11/18) alcohol intake frequency: holidays/special occasions only Substance Use Type: does not use Exam Initial Vital Signs Initial Vital Signs: Vital Signs Pulse Rate 93 H 05/02/24 10:06 Pulse Oximetry 96 05/02/24 10:06 GENERAL: Alert 28-year-old female appears to not feel well and in [no acute] distress. HEENT: Head atraumatic,EOMI, pupils reactive, face symmetric, [moist] mucous membranes CARDIOVASCULAR: Regular rate and rhythm without murmurs, rubs or gallops. RESPIRATORY: Breath sounds equal bilaterally, no wheezes rales or rhonchi. ABDOMEN: Soft, mild tender suprapubic area no guarding or rebound EXTREMITIES: Normal range of motion, no clubbing or edema. Neurovascularly intact NEUROLOGICAL: Alert and oriented x4.Normal gait and speech. SKIN: Warm, dry, no laceration, no petechiae, no rashes or lesions. Course Orders Ordered: ED Orders 05/02/24 10:14 Urine Microscopic Stat 05/02/24 10:20 US OB <= 14 weeks fetus Stat Complete Blood Count AUTO DIFF Stat Comprehensive Metabolic Panel Stat HCG Quantitative /Beta subunit Stat Type and Screen Stat 05/02/24 11:48 US pelvic complete Stat Discontinued Medications Sodium Chloride (Normal Saline 0.9%) 500 mls @ 1,000 mls/hr IV BOLUS ONE Stop: 05/02/24 12:17 Last Infusion: 05/02/24 13:17 Dose: Infused Documented By: Admin: 05/02/24 12:27 Dose: 1,000 mls/hr Documented By: LASHANDA Ketorolac Tromethamine (Ketorolac 30 Mg/Ml Vial) 15 mg IV NOW ONE Stop: 05/02/24 11:49 Last Admin: 05/02/24 12:26 Dose: 15 mg Documented By: LASHANDA Ondansetron HCl (Ondansetron 4 Mg/2 Ml Inj) 4 mg IV NOW ONE Stop: 05/02/24 10:31 Last Admin: 05/02/24 10:32 Dose: 4 mg Documented By: LASHANDA Vital Signs Vital signs: Vital Signs - 8 hr 05/02/24 10:06 05/02/24 10:07 05/02/24 10:07 Temperature Pulse Rate 93 H 84 Respiratory Rate Blood Pressure 116/73 Pulse Oximetry 96 99 Oxygen Delivery Method 05/02/24 10:11 05/02/24 10:35 05/02/24 10:36 Temperature 99 F Pulse Rate 83 81 79 Respiratory Rate 17 Blood Pressure 116/73 Pulse Oximetry 99 97 97 Oxygen Delivery Method Room Air 05/02/24 10:36 05/02/24 11:00 05/02/24 11:01 Temperature Pulse Rate 81 Respiratory Rate Blood Pressure 107/66 117/64 117/64 Pulse Oximetry 96 Oxygen Delivery Method 05/02/24 11:01 05/02/24 11:30 05/02/24 11:30 Temperature Pulse Rate 82 67 Respiratory Rate Blood Pressure 89/52 L Pulse Oximetry 97 98 Oxygen Delivery Method 05/02/24 11:38 05/02/24 11:38 05/02/24 11:41 Temperature Pulse Rate 78 71 Respiratory Rate Blood Pressure 89/55 L Pulse Oximetry 99 100 Oxygen Delivery Method 05/02/24 11:41 05/02/24 11:45 05/02/24 11:45 Temperature Pulse Rate 67 Respiratory Rate Blood Pressure 95/57 L 97/66 Pulse Oximetry 100 Oxygen Delivery Method 05/02/24 12:00 05/02/24 12:00 05/02/24 12:15 Temperature Pulse Rate 67 68 Respiratory Rate Blood Pressure 89/56 L Pulse Oximetry 100 99 Oxygen Delivery Method 05/02/24 12:15 05/02/24 12:23 05/02/24 13:52 Temperature Pulse Rate 69 Respiratory Rate Blood Pressure 94/51 L 103/63 Pulse Oximetry 99 Oxygen Delivery Method MDM - Female Genitourinary Lab Data 05/02/24 10:20 05/02/24 10:20 Labs: Lab Results 05/02/24 05/02/24 Range/Units 10:14 10:20 WBC 7.2 (4.5-11.0) X10^3/uL RBC 4.19 (4.0-5.2) X10^6/uL Hgb 12.6 (12.0-16.0) g/dL Hct 37.2 (36-46) % MCV 88.7 (80-100) fL MCH 30.1 (26-34) PG MCHC 33.9 (30-36) % RDW 13.3 (11.6-14.8) % Plt Count 264 (150-400) X10^3/uL Neut % (Auto) 77.4 H (50-75) % Lymph % (Auto) 14.9 L (25-40) % [place] % (Auto) 6.5 (3-14) % Eos % (Auto) 0.7 L (2-4) % Baso % (Auto) 0.5 (0-2) % Neut # (Auto) 5500 (0705-9062) /uL Lymph # (Auto) 1100 (6395-0125) /uL [place] # (Auto) 500 (0-900) /uL Eos # (Auto) 100 (0-450) /uL Baso # (Auto) 0 (0-100) /uL Sodium 139 (137-145) mmol/L Potassium 4.0 (3.4-5.1) mmol/L Chloride 105 (98-107) mmol/L Carbon Dioxide 27 (22-32) mmol/L BUN 11 (7-17) mg/dL Creatinine 0.83 (0.52-1.04) mg/dL Estimated GFR > 60 (>60) mL/min BUN/Creatinine Ratio 13.3 (6-22) Glucose 96 (70-100) mg/dL Calcium 9.1 (8.4-10.2) mg/dL Total Bilirubin 1.8 H (0.2-1.3) mg/dL AST 23 (14-36) IU/L ALT 14 (<35) IU/L Alkaline Phosphatase 58 (38-126) U/L Total Protein 6.7 (6.3-8.2) g/dL Albumin 4.3 (3.5-5.0) g/dL Globulin 2.4 (1.7-4.1) g/dL Albumin/Globulin Ratio 1.8 (1.0-2.8) HCG, Quant < 2.39 mIU/mL Urine RBC 1-5/hpf (0-5/HPF) Urine WBC 0-1/hpf (0-5/HPF) Ur Squamous Epith Cells 1-5 /hpf (0-5/HPF) Urine Bacteria Few (2-10) H (None) Ur Culture Indicated? Cult not indicated Vol Urine Centrifuged 10ml (spun) Blood Type A Positive Antibody Screen Negative Point of Care Testing Test Results Negative Urine Dip Bedside Urine Glucose Negative Bedside Urine Bilirubin - Negative Bedside Urine Ketone - Negative Urine Specific [place] 1.025 Bedside Urine Occult Blood +++ Bedside Urine pH 6.0 Bedside Urine Protein - Negative Bedside Urine Urobilinogen - Negative Bedside Urine Nitrite - Negative Bedside Urine Leukocytes - Negative Esterase Imaging Data US - [employer]: Radiologist's Impression: PROCEDURE: US PELVIC COMPLETE INDICATIONS: vag bleeding pain, not TECHNIQUE: Real-time scanning was performed of the pelvic organs, with image documentation. Additional endovaginal scanning was necessary due to incomplete visualization of the adnexal and endometrial structures by transabdominal scanning. COMPARISON: None. FINDINGS: Uterus: Uterus is anteverted and normal in size at 8.1 x 3.4 x 5.0 cm. The myometrium is homogeneous. The endometrium measures 6.7 mm combined thickness. No evidence of intrauterine Ovaries: Both ovaries normal in size, echotexture and vascularity. Less than 12 follicles are noted bilaterally. No adnexal mass. Other: No pathologic free abdominal or pelvic fluid. IMPRESSION: Normal ultrasound the pelvis. No evidence of intrauterine or adnexal mass. Approved by: Jai Ortiz M.D. on 05/02/2024 at 12:40 MDM Narrative Medical decision making narrative: 28-year-old female presenting today with nausea vomiting and vaginal bleeding. Reports positive test at home but had a negative test 5 days ago walk-in clinic. He has a history of prior miscarriage. She has been nauseous all week. Blood work has been reviewed she has no leukocytosis no anemia no LAITH electrolytes are stable no hypokalemia Urine test is negative hCG quant is undetectable. Urinalysis negative for UTI Ultrasound no evidence of or abnormalities Patient concerned today for miscarriage however no evidence of 5 days ago at walk-in clinic or today. She continues to be nauseous here in the ED but no significant electrolyte abnormality or LAITH found on blood work. She had soft blood pressure she was given 500 cc bolus of normal saline Zofran and Toradol. I have explained results to her unclear what happened with home test but today no evidence of likely starting menstrual cycle possible gastroenteritis causing some nausea vomiting. Ultrasound does not show any evidence of ovarian torsion or ectopic she has no leukocytosis reports no significant blood loss. Recommended supportive care at this Discharge Plan Departure Patient Disposition: Home Clinical Impression: Gastroenteritis, Vaginal bleeding Instructions: DI for Viral Gastroenteritis -- Adult Activity Restrictions/Additional Instructions: *You have been diagnosed with vaginal bleeding, gastritis *What to do: At this time please monitor your bleeding if it is becoming significantly more heavy or than 2 pads in 1 hour increased pain then please return to the ED Increase fluids as tolerated recommend electrolyte fluids Pedialyte or Gatorade or other *Continue to take medications as directed Zofran 4 mg every 8 hours if needed for nausea vomiting Tylenol Motrin as needed *Follow up with your primary care provider in 2-3 days or call [phone] *Return to ER if you should have persistent vomiting increasing pain dizziness lightheadedness passing out bleeding increase or any new, worsening or concerning symptoms Prescriptions: New ondansetron 4 mg tablet,disintegrating 4 mg PO Q8H PRN (Reason: nausea and vomiting) Qty: 10 0RF No Action acyclovir 800 mg tablet 800 mg PO DAILY dextroamphetamine-amphetamine [Adderall] 20 mg tablet 20 mg PO BID Rx Instructions: administer doses at least 4-6 hours apart metaxalone 800 mg tablet 800 mg PO ONCE trazodone 100 mg tablet 100 mg PO BEDTIME PRN Latuda 60 mg tablet 60 mg PO DAILY Rx Instructions: must administer with food (at least 350 calories) pregabalin [Lyrica] 300 mg capsule 300 mg PO BID levonorgestrel-ethinyl estrad [[place]um 28] 0.15-0.03 mg tablet 1 tab PO DAILY Qty: 84 3RF albuterol sulfate [Ventolin HFA] 90 mcg/actuation HFA aerosol inhaler 1 puff INHALATION Q6H PRN (Reason: Shortness Of Breath) Prenatabs Rx 29 mg iron- 1 mg Tablet 1 tab PO DAILY Qty: 60 0RF epinephrine 0.3 mg/0.3 mL auto-injector 0.3 mg IM PRN PRN (Reason: Anaphylaxis) Referrals: Nova Rojas PA-C [Primary Care Provider] - Stand Alone Forms: Patient Portal/API
--- NOTE | 2024-05-02 11:48 | DI.US.S_ITS ---
PROCEDURE: US PELVIC COMPLETE INDICATIONS: vag bleeding pain, not TECHNIQUE: Real-time scanning was performed of the pelvic organs, with image documentation. Additional endovaginal scanning was necessary due to incomplete visualization of the adnexal and endometrial structures by transabdominal scanning. COMPARISON: None. FINDINGS: Uterus: Uterus is anteverted and normal in size at 8.1 x 3.4 x 5.0 cm. The myometrium is homogeneous. The endometrium measures 6.7 mm combined thickness. No evidence of intrauterine Ovaries: Both ovaries normal in size, echotexture and vascularity. Less than 12 follicles are noted bilaterally. No adnexal mass. Other: No pathologic free abdominal or pelvic fluid. IMPRESSION: Normal ultrasound the pelvis. No evidence of intrauterine or adnexal mass. Approved by: Jai Ortiz M.D. on 05/02/2024 at 12:40
[2024-05-02] MEDS: KETOROLAC 30 MG/ML VIAL 15 MG IV (12:26)
[2024-05-02] MEDS: SODIUM CHLORIDE 0.9% 500 ML 1000 ML IV (12:27)
== END 2024-05-02 14:00 | disposition home or self-care (01) ==
PROVIDERS: Emergency Provider Emergency Medicine; PCP Physician Assistant Medical
DX: K52.9 Noninfective gastroenteritis and colitis, unspecified (principal); N93.9 Abnormal uterine and vaginal bleeding, unspecified
CPT/HCPCS: 36415; 76856; 80053; 81003; 81015; 81025; 84702; 85025; 86850; 86900; 86901; 96361; 96374; 96375; 99284; J1885; J2405

== ENCOUNTER → 2024-05-23 13:14 | Outpatient (CLI) | payer OTHER, MEDICAID, SELFPAY | PROVIDERS: PCP Physician Assistant Medical; Visit Provider Registered Nurse | DX: N94.89 Other specified conditions associated with female genital organs and menstrual cycle (principal) | CPT/HCPCS: 87210 ==

== ENCOUNTER 2024-06-23 11:10 | Emergency (ER) | payer OTHER, MEDICAID, SELFPAY ==
[2024-06-23] VITALS (8 sets, daily range): BP systolic 104–126; BP diastolic 60–78; PULSE 64–89; RESP 14–29; TEMP 36.2; O2SAT 94–99; BMI 27.4
--- NOTE | 2024-06-23 12:01 | ED.ABDPAIN ---
HPI - Abdominal Pain General Chief Complaint: Abdominal Pain Stated Complaint: severe abd pain vomitting diarrhea Time Seen by Provider: 06/23/24 11:21 Mode of arrival: Ambulatory History of Present Illness HPI narrative: 28-year-old female presents by private vehicle for 1 day of severe bilateral lower quadrant abdominal pain, nausea, vomiting, and mucousy diarrhea. 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 Related Data Home Medications Medication Instructions Recorded Confirmed epinephrine 0.3 mg/0.3 mL 0.3 mg IM PRN PRN Anaphylaxis 06/23/20 06/25/24 injection, auto-injector acyclovir 800 mg tablet 800 mg PO DAILY 04/27/24 06/25/24 Previous Rx's Medication Instructions Recorded albuterol sulfate 90 mcg/actuation 1 puff inhalation Q6H PRN 06/25/24 aerosol inhaler (Ventolin HFA) Shortness Of Breath #8.5 grams dextroamphetamine-amphetamine 10 10 mg PO .afternoon #30 tabs 06/25/24 mg tablet (Adderall) dextroamphetamine-amphetamine 20 40 mg (2 x 20 mg) PO DAILY #60 tabs 06/25/24 mg tablet (Adderall) doxepin 25 mg capsule 25 mg PO BEDTIME PRN insomnia #30 06/25/24 caps meloxicam 15 mg tablet 15 mg PO DAILY PRN pain (scale 06/25/24 score 1-3) #30 tabs pregabalin 300 mg capsule 300 mg PO BID #60 caps 06/25/24 clonazepam 1 mg tablet 1 mg PO DAILY PRN panic attack(s) 06/26/24 #5 tabs Allergies Allergy/AdvReac Type Severity Reaction Status Date / Time gluten Allergy Severe Anaphylaxis Verified 06/23/24 11:15 sumatriptan Allergy Severe Hives, Verified 06/23/24 11:15 throat closing venlafaxine [From Effexor] Allergy Severe Hives, Verified 06/23/24 11:15 throat closing, fever beef derived (bovine) Allergy Intermediate Hives Verified 06/23/24 11:15 codeine Allergy Intermediate Verified 06/23/24 11:15 [From Tylenol-Codeine #3] milk Allergy Intermediate Hives Verified 06/23/24 11:15 Iodinated Contrast Media Allergy Mild Verified 06/25/24 09:31 Sulfa (Sulfonamide Allergy Mild Rash Verified 06/23/24 11:15 Antibiotics) levonorgestrel AdvReac Mood swings Verified 06/23/24 11:15 Patient History Medical History Multiple food allergies CMC arthritis Asthma Genital HSV PCOS (polycystic ovarian syndrome) Bipolar 2 disorder PTSD (post-traumatic stress disorder) Insomnia ADHD Fibromyalgia Halitosis Tonsil stone Earache Facial pain Sinusitis Hearing loss Surgical History S/P section (12/11/18) Social History household members: significant other and children Smoking Status: Current every day smoker alcohol intake: current Smoking Status: Current every day smoker alcohol intake frequency: holidays/special occasions only Exam Initial Vital Signs Initial Vital Signs: Vital Signs Temperature 97.2 F L 06/23/24 11:15 Pulse Rate 84 06/23/24 11:15 Respiratory Rate 14 06/23/24 11:15 Blood Pressure 126/74 06/23/24 11:15 Pulse Oximetry 94 06/23/24 11:15 Oxygen Delivery Method Room Air 06/23/24 11:15 Const: Awake, alert, uncomfortable, nontoxic appearing Cardiac: regular rate, regular rhythm RESP: unlabored, clear bilaterally, no wheezing GI: Soft, generalized tenderness to palpation particularly in RLQ, but also in LLQ Skin: Warm, Dry, intact, no rashes Neuro: AO x3, CN II-XII grossly intact, moves all extremities Course Orders Ordered: Discontinued Medications Diphenhydramine HCl (Diphenhydramine 50 Mg/Ml Vial) 25 mg IV NOW ONE Stop: 06/23/24 12:07 Last Admin: 06/23/24 12:18 Dose: 25 mg Documented By: CTS Methylprednisolone (Methylprednisolone 125 Mg/2 Ml Vial) 125 mg IV NOW ONE Stop: 06/23/24 12:07 Last Admin: 06/23/24 12:18 Dose: 125 mg Documented By: CTS Morphine Sulfate (Morphine 4 Mg/Ml Inj) 4 mg IV NOW ONE Stop: 06/23/24 12:02 Last Admin: 06/23/24 12:18 Dose: 4 mg Documented By: YRN Ondansetron HCl (Ondansetron 4 Mg/2 Ml Inj) 4 mg IV NOW PRN PRN Reason: Nausea And Vomiting Last Admin: 06/23/24 12:18 Dose: 4 mg Documented By: YRN Vital Signs Vital signs: Vital Signs - 8 hr 06/23/24 11:15 06/23/24 12:16 06/23/24 12:17 Temperature 97.2 F L Pulse Rate 84 89 Respiratory Rate 14 Blood Pressure 126/74 120/78 Pulse Oximetry 94 98 Oxygen Delivery Method Room Air 06/23/24 12:17 06/23/24 12:30 Temperature Pulse Rate 88 64 Respiratory Rate 18 Blood Pressure Pulse Oximetry 99 99 Oxygen Delivery Method MDM - Abdominal Pain Differential Diagnosis Differential diagnosis: Likely abdominal pain, acute appendicitis and calculus of kidney Lab Data 06/23/24 12:00 06/23/24 12:00 Labs: Lab Results 06/23/24 06/23/24 Range/Units 11:28 12:00 WBC 16.2 H (4.5-11.0) X10^3/uL RBC 4.49 (4.0-5.2) X10^6/uL Hgb 13.3 (12.0-16.0) g/dL Hct 39.4 (36-46) % MCV 87.8 (80-100) fL MCH 29.5 (26-34) PG MCHC 33.6 (30-36) % RDW 12.7 (11.6-14.8) % Plt Count 252 (150-400) X10^3/uL Neut % (Auto) 90.3 H (50-75) % Lymph % (Auto) 2.9 L (25-40) % [place] % (Auto) 6.6 (3-14) % Eos % (Auto) 0.0 L (2-4) % Baso % (Auto) 0.2 (0-2) % Neut # (Auto) 40936 H (9509-2911) /uL Lymph # (Auto) 500 L (4964-6151) /uL [place] # (Auto) 1100 H (0-900) /uL Eos # (Auto) 0 (0-450) /uL Baso # (Auto) 0 (0-100) /uL Sodium 134 L (137-145) mmol/L Potassium 4.1 (3.4-5.1) mmol/L Chloride 105 (98-107) mmol/L Carbon Dioxide 26 (22-32) mmol/L BUN 13 (7-17) mg/dL Creatinine 0.72 (0.52-1.04) mg/dL Estimated GFR > 60 (>60) mL/min BUN/Creatinine Ratio 18.1 (6-22) Glucose 108 H (70-100) mg/dL Calcium 9.3 (8.4-10.2) mg/dL Total Bilirubin 1.2 (0.2-1.3) mg/dL AST 26 (14-36) IU/L ALT 18 (<35) IU/L Alkaline Phosphatase 60 (38-126) U/L Total Protein 7.2 (6.3-8.2) g/dL Albumin 4.3 (3.5-5.0) g/dL Globulin 2.9 (1.7-4.1) g/dL Albumin/Globulin Ratio 1.5 (1.0-2.8) Lipase 79 (23-300) U/L Ur Bilirubin Confirm Negative (Negative) Urine RBC None seen (0-5/HPF) Urine WBC 1-5/hpf (0-5/HPF) Ur Squamous Epith Cells 1-5 /hpf (0-5/HPF) Urine Bacteria None seen (None) Urine Mucus 2+ H (Negative) Vol Urine Centrifuged 10ml (spun) Stl C. cayetanensis PCR Not detected (Not Detect) Stool Rotavirus (PCR) Not detected (Not Detect) Stool Adenovirus (PCR) Not detected (Not Detect) Stool Astrovirus (PCR) Detected (Not Detect) Stool Cryptosporidium PCR Not detected (Not Detect) Stl E.coli Shiga Tox PCR Not detected (Not Detect) St Sh/Enteroin Ecoli PCR Not detected (Not Detect) Stl Enterotoxigenic E PCR Not detected (Not Detect) Stool EPEC (PCR) Not detected (Not Detect) Stl E. histolytica PCR Not detected (Not Detect) Stool Giardia Lamblia PCR Not detected (Not Detect) Stool Sapovirus (PCR) Not detected (Not Detect) Stl P. shigelloides PCR Not detected (Not Detect) St Y.enterocolitica PCR Not detected (Not Detect) Stool Vibrio (PCR) Not detected (Not Detect) Stl Vibrio cholerae PCR Not detected (Not Detect) Stl Enteroaggr Ecoli PCR Not detected (Not Detect) Stl Norovirus GI/GII PCR Not detected (Not Detect) Campylobacter (PCR) Not detected (Not Detect) C. difficile Tox (PCR) Not detected (Not Detect) Salmonella (PCR) Not detected (Not Detect) Point of care testing: Point of Care Testing Test Results Negative Urine Dip Bedside Urine Glucose Negative Bedside Urine Bilirubin + 1 Bedside Urine Ketone +/- 5 Urine Specific [place] 1.030 Bedside Urine Occult Blood - Negative Bedside Urine pH 5.0 Bedside Urine Protein +/- 15 Bedside Urine Urobilinogen - Negative Bedside Urine Nitrite - Negative Bedside Urine Leukocytes + [address] scan - abdomen/pelvis: Radiologist's Impression: PROCEDURE: CT ABDOMEN PELVIS W CON INDICATIONS: RLQ PAIN, N/V TECHNIQUE: After the administration of intravenous contrast, axial sections acquired from the lung bases to the pubic symphysis. Coronal and sagittal reformats were performed. For radiation dose reduction, the following was used: automated exposure control, adjustment of mA and/or kV according to patient size. COMPARISON: [facility], US, US PELVIC COMPLETE, 05/02/2024, 12:24. [facility], CT, ABDOMEN/PELVIS WITH CONTRAST, 07/22/2017, 11:04. FINDINGS: Image quality: Diagnostic. Lower Chest: No significant findings. ABDOMEN: Liver: No solid mass. Gallbladder: No radiopaque gallstones or wall thickening. Biliary ducts: No biliary dilation. Pancreas: No ductal dilation. Spleen: Size is within normal limits. Adrenal Glands: No adrenal nodules. Kidneys and Ureters: No hydronephrosis. No solid mass. No complex renal cystic lesion which requires follow up. Stomach and Bowel: Normal colonic caliber, without significant wall thickening. The appendix is thin walled and gas filled. Peritoneum: No abnormal intraperitoneal fluid. No free air. Ventral Wall: No significant ventral hernia. Abdominal Nodes: No retroperitoneal or mesenteric adenopathy by size criteria. Vessels: Aorta and inferior vena cava are normal in size. PELVIS: Pelvic Organs: There is a rim enhancing 2.2 x 1.4 by 2.3 cm right ovarian cyst. Free fluid surrounds this follicular cyst. Bladder: No bladder wall thickening, accounting for underdistention. Pelvic Nodes: No enlarged lymph nodes. Miscellaneous: No inguinal hernias are seen. Bones: No aggressive osseous abnormality. IMPRESSION: 1. Findings suspicious for recent right follicular cyst rupture. 2. No other acute intra-abdominal findings. Normal appendix. Dictated by: Joy Abdul M.D. on 06/23/2024 at 12:34 Approved by: Joy Abdul M.D. on 06/23/2024 at 12:43 MDM Narrative Medical decision making narrative: Patient presenting for abdominal pain with vomiting and diarrhea. Generally tender to palpation, particularly in the right lower quadrant of the abdomen. Laboratory work, medications for nausea and pain ordered. GI panel ordered. Laboratory work shows WBC count 16.2, hemoglobin 13.3, platelet count 252, sodium 134, potassium 4.1, creatinine 0.72, normal liver enzymes. GI panel positive for astrovirus. CT negative for acute findings, possible right follicular cyst rupture. Patient reassessed, resting comfortably in bed. She was informed of all lab and imaging findings. For astrovirus supportive care measures were counseled. Discharge Plan Departure Patient Disposition: Home Clinical Impression: Astrovirus enteritis Instructions: DI for Bacterial Gastroenteritis -- Adult Activity Restrictions/Additional Instructions: Your stool panel today showed you tested positive for asked her virus, which can cause diarrhea and abdominal pain. This will resolve itself. Make sure to stay hydrated and drink plenty of fluids. Tylenol and ibuprofen can be used to help with cramping symptoms. Prescriptions: No Action acyclovir 800 mg tablet 800 mg PO DAILY dextroamphetamine-amphetamine [Adderall] 10 mg tablet 10 mg PO .afternoon Qty: 30 0RF pregabalin 300 mg capsule 300 mg PO BID Qty: 60 0RF albuterol sulfate [Ventolin HFA] 90 mcg/actuation HFA aerosol inhaler 1 puff INHALATION Q6H PRN (Reason: Shortness Of Breath) Qty: 8.5 2RF doxepin 25 mg capsule 25 mg PO BEDTIME PRN (Reason: insomnia) Qty: 30 0RF meloxicam 15 mg tablet 15 mg PO DAILY PRN (Reason: pain (scale score 1-3)) Qty: 30 3RF dextroamphetamine-amphetamine [Adderall] 20 mg tablet 40 mg PO DAILY Qty: 60 0RF clonazepam 1 mg tablet 1 mg PO DAILY PRN (Reason: panic attack(s)) Qty: 5 0RF epinephrine 0.3 mg/0.3 mL auto-injector 0.3 mg IM PRN PRN (Reason: Anaphylaxis) Referrals: Nova Rojas PA-C [Primary Care Provider] - Stand Alone Forms: Patient Portal/API/Survey, Work Release Note
[2024-06-23 12:03] LABS: Bacteria Urine None Seen; Mucus Urine 2+ (Negative); RBC Urine None Seen (0-5/HPF); Squamous Epithelial Cell Urine 1-5 /HPF (0-5/HPF); Urine Volume 10mL (spun); WBC Urine 1-5/HPF (0-5/HPF)
[2024-06-23 12:05] LABS: Add Manual Diff / Slide Review NO; Basophils Absolute Auto 0 /uL (0-100); Basophils Percent Auto 0.2 % (0-2); Eosinophils Absolute Auto 0 /uL (0-450); Hematocrit 39.4 % (36-46); Hemoglobin 13.3 g/dL (12.0-16.0); Lymphocytes Absolute Auto 500 /uL (1100-4500); Lymphocytes Percent Auto 2.9 % (25-40); Mean Corpuscular HGB Conc 33.6 % (30-36); Mean Corpuscular Hemoglobin 29.5 PG (26-34); Mean Corpuscular Volume 87.8 fL (80-100); Monocytes Absolute Auto 1100 /uL (0-900); Monocytes Percent Auto 6.6 % (3-14); Neutrophils Absolute Auto 14600 /uL (1500-7000); Neutrophils Percent Auto 90.3 % (50-75); Platelet Count 252 X10^3/uL (150-400); Red Blood Cell Count 4.49 X10^6/uL (4.0-5.2); Red Cell Distribution Width 12.7 % (11.6-14.8); White Blood Cell Count 16.2 X10^3/uL (4.5-11.0)
[2024-06-23 12:05] LABS: Ictotest Urine Negative (Negative)
[2024-06-23 12:17] LABS: Alanine Aminotransferase 18 IU/L (<35); Albumin 4.3 g/dL (3.5-5.0); Albumin Globulin Ratio 1.5 (1.0-2.8); Alkaline Phosphatase 60 U/L (38-126); Aspartate Aminotransferase 26 IU/L (14-36); BUN Creatinine Ratio 18.1 (6-22); Bilirubin Total 1.2 mg/dL (0.2-1.3); Blood Urea Nitrogen 13 mg/dL (7-17); Calcium 9.3 mg/dL (8.4-10.2); Carbon Dioxide 26 mmol/L (22-32); Chloride 105 mmol/L (98-107); Estimated Glomerular Filt Rate > 60 mL/min (>60); Globulin 2.9 g/dL (1.7-4.1); Glucose 108 mg/dL (70-100); HEMOLYSIS < 15 (0-50); Lipase 79 U/L (23-300); Potassium 4.1 mmol/L (3.4-5.1); Sodium 134 mmol/L (137-145); Total Protein 7.2 g/dL (6.3-8.2)
[2024-06-23] MEDS: methylPREDNISolone 125 MG/2 ML VIAL IV (12:18)
[2024-06-23] MEDS: ONDANSETRON 4 MG/2 ML INJ IV (12:18)
[2024-06-23] MEDS: diphenhydrAMINE 50 MG/ML VIAL 25 MG IV (12:18)
[2024-06-23] MEDS: MORPHINE 4 MG/ML INJ IV (12:18)
--- NOTE | 2024-06-23 12:26 | DI.CT.S_ITS ---
PROCEDURE: CT ABDOMEN PELVIS W CON INDICATIONS: RLQ PAIN, N/V TECHNIQUE: After the administration of intravenous contrast, axial sections acquired from the lung bases to the pubic symphysis. Coronal and sagittal reformats were performed. For radiation dose reduction, the following was used: automated exposure control, adjustment of mA and/or kV according to patient size. COMPARISON: [facility], US, US PELVIC COMPLETE, 05/02/2024, 12:24. [facility], CT, ABDOMEN/PELVIS WITH CONTRAST, 07/22/2017, 11:04. FINDINGS: Image quality: Diagnostic. Lower Chest: No significant findings. ABDOMEN: Liver: No solid mass. Gallbladder: No radiopaque gallstones or wall thickening. Biliary ducts: No biliary dilation. Pancreas: No ductal dilation. Spleen: Size is within normal limits. Adrenal Glands: No adrenal nodules. Kidneys and Ureters: No hydronephrosis. No solid mass. No complex renal cystic lesion which requires follow up. Stomach and Bowel: Normal colonic caliber, without significant wall thickening. The appendix is thin walled and gas filled. Peritoneum: No abnormal intraperitoneal fluid. No free air. Ventral Wall: No significant ventral hernia. Abdominal Nodes: No retroperitoneal or mesenteric adenopathy by size criteria. Vessels: Aorta and inferior vena cava are normal in size. PELVIS: Pelvic Organs: There is a rim enhancing 2.2 x 1.4 by 2.3 cm right ovarian cyst. Free fluid surrounds this follicular cyst. Bladder: No bladder wall thickening, accounting for underdistention. Pelvic Nodes: No enlarged lymph nodes. Miscellaneous: No inguinal hernias are seen. Bones: No aggressive osseous abnormality. IMPRESSION: 1. Findings suspicious for recent right follicular cyst rupture. 2. No other acute intra-abdominal findings. Normal appendix. Dictated by: Joy Abdul M.D. on 06/23/2024 at 12:34 Approved by: Joy Abdul M.D. on 06/23/2024 at 12:43
--- NOTE | 2024-06-23 12:48 | PC.NURSE ---
Pt reports when she was living in [place] she has a CT with contrast and had anaphylatic reaction to contrast. states i woke up with cardiac pads on my chest and i had stopped breathing Dr Mcleod made aware. pt premedicated per MAR and brought down on cardiac monitoring with RN at side. Brought back to room. No adverse reactions observed.
[2024-06-23 13:17] LABS: Adenovirus F 40/41 Not Detected (Not Detect); Astrovirus Detected (Not Detect); Campylobacter Not Detected (Not Detect); Clostridium difficile toxin AB Not Detected (Not Detect); Cryptosporidium Not Detected (Not Detect); Cyclospora cayetanensis Not Detected (Not Detect); Entamoeba histolytica Not Detected (Not Detect); Enteroaggregative E.coli Not Detected (Not Detect); Enteropathogenic E.coli Not Detected (Not Detect); Enterotoxigenic E.coli It/st Not Detected (Not Detect); Giardia lamblia Not Detected (Not Detect); Norovirus GI/GII Not Detected (Not Detect); Plesiomonsa shigelloides Not Detected (Not Detect); Rotavirus A Not Detected (Not Detect); Salmonella Not Detected (Not Detect); Sapovirus Not Detected (Not Detect); Shiga-like toxin-prod E.coli Not Detected (Not Detect); Shigella/Enteroinvasive E.coli Not Detected (Not Detect); Vibrio Not Detected (Not Detect); Vibrio cholerae Not Detected (Not Detect); Yersinia enterocolitica Not Detected (Not Detect)
== END 2024-06-23 14:02 | disposition home or self-care (01) ==
PROVIDERS: Emergency Provider Emergency Medicine; PCP Physician Assistant Medical
DX: A08.32 Astrovirus enteritis (principal)
CPT/HCPCS: 36415; 74177; 80053; 81003; 81015; 81025; 83690; 85025; 87086; 87507; 96374; 96375; 99284; J1200; J2270; J2405; J2919; Q9967

== ENCOUNTER 2024-07-13 17:23 | Emergency (ER) | payer OTHER, SELFPAY ==
[2024-07-13 17:27] VITALS: BP 132/83; PULSE 86; RESP 16; TEMP 37.1; O2SAT 98; BMI 29.8
--- NOTE | 2024-07-13 17:37 | EKG_ITS ---
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
--- NOTE | 2024-07-13 17:37 | DI.RAD.S_ITS ---
PROCEDURE: XR CHEST 1V INDICATIONS: chest pain TECHNIQUE: One view of the chest was acquired. COMPARISON: None. FINDINGS: Surgical changes and devices: None. Lungs and pleura: Lungs are clear. No pleural effusions or pneumothorax. Mediastinum: Mediastinal contours appear normal. Heart size is normal. Bones and chest wall: No suspicious bony lesions. Overlying soft tissues appear unremarkable. IMPRESSION: No acute cardiopulmonary abnormalities or focal consolidation. Dictated by: Brian Blunt M.D. on 07/13/2024 at 18:56 Approved by: Brian Blunt M.D. on 07/13/2024 at 18:57
[2024-07-13 18:02] LABS: Add Manual Diff / Slide Review NO; Basophils Absolute Auto 0 /uL (0-100); Basophils Percent Auto 0.8 % (0-2); Eosinophils Absolute Auto 100 /uL (0-450); Eosinophils Percent Auto 2.3 % (2-4); Hemoglobin 12.8 g/dL (12.0-16.0); Lymphocytes Absolute Auto 1800 /uL (1100-4500); Mean Corpuscular HGB Conc 33.7 % (30-36); Mean Corpuscular Hemoglobin 30.5 PG (26-34); Mean Corpuscular Volume 90.7 fL (80-100); Monocytes Absolute Auto 500 /uL (0-900); Monocytes Percent Auto 8.1 % (3-14); Neutrophils Absolute Auto 3100 /uL (1500-7000); Neutrophils Percent Auto 55.8 % (50-75); Platelet Count 212 X10^3/uL (150-400); Red Blood Cell Count 4.18 X10^6/uL (4.0-5.2); Red Cell Distribution Width 12.7 % (11.6-14.8); White Blood Cell Count 5.5 X10^3/uL (4.5-11.0)
[2024-07-13 18:11] LABS: Prothrombin Time 11.1 SECONDS (9.4-12.5)
[2024-07-13 18:13] LABS: PTT Partial Thromboplastin Tim 39 SECONDS (25.1-36.5)
[2024-07-13 18:15] LABS: Alanine Aminotransferase 18 IU/L (<35); Albumin Globulin Ratio 1.4 (1.0-2.8); Alkaline Phosphatase 45 U/L (38-126); Aspartate Aminotransferase 25 IU/L (14-36); BUN Creatinine Ratio 12.3 (6-22); Bilirubin Total 0.4 mg/dL (0.2-1.3); Blood Urea Nitrogen 9 mg/dL (7-17); Calcium 9.3 mg/dL (8.4-10.2); Carbon Dioxide 30 mmol/L (22-32); Chloride 106 mmol/L (98-107); Creatine Kinase 109 U/L (30-135); Estimated Glomerular Filt Rate > 60 mL/min (>60); Globulin 2.8 g/dL (1.7-4.1); Glucose 96 mg/dL (70-100); HEMOLYSIS < 15 (0-50); Lipase 91 U/L (23-300); Potassium 3.7 mmol/L (3.4-5.1); Sodium 139 mmol/L (137-145); Total Protein 6.8 g/dL (6.3-8.2)
[2024-07-13 18:22] LABS: D Dimer < 215 ng/ml (<500)
[2024-07-13 18:27] LABS: NT-proBNP (BNP-Adult 18+) 28 pg/mL (<125); Troponin I < 0.012 ng/mL (0.01-0.034)
--- NOTE | 2024-07-13 19:12 | ED.ARRPALP ---
HPI - Arrhythmia/Palpitations General Chief Complaint: Arrhythmia/Palpitations Stated Complaint: returning; sent by PCPpraveen Time Seen by Provider: 07/13/24 17:46 Source: patient, RN notes reviewed and old records reviewed Mode of arrival: Family Vehicle Limitations: no limitations History of Present Illness HPI narrative: 28-year-old female with a history of PCOS presents with complaint of chronic lightheadedness which she describes has been orthostatic we will often get lightheaded when going from a lying or seated position to standing has had syncopal episodes in the past. She notes recently she started developed chest pressure sometimes we will not doing any particular activity we will be very brief she will get palpitations or heart rate we will be very fast she will have pressure in the middle of her chest without any radiation feel short of breath typically last 10-15 seconds and then resolves. She had 2 episodes yesterday that were very similar and notes her resting heart rate was 124 while sitting on the couch and occurred while she was on the couch on her phone. She has been in touch with her physician has not appointment with her physician in July but he was encouraged to come for evaluation. She has had no recent fevers no cold cough congestion. No recent syncopal episodes. She has not had any shortness of breath except with those brief episodes. No nausea or vomiting. No diaphoresis reported. No swelling of her extremities. Patient is on medications for ADHD which could potentially be contributing factor. She had a prior in 2019. Patient states she has multiple allergies does have a contrast allergy but states received pretreatment with Solu-Medrol and Benadryl and did well. Does use tobacco, no alcohol uses marijuana no other recreational drugs. Family history she has a grandfather who had a three-vessel CABG but no other known cardiac arrhythmias, embolic or vascular disease. Related Data Home Medications Medication Instructions Recorded Confirmed epinephrine 0.3 mg/0.3 mL 0.3 mg IM PRN PRN Anaphylaxis 06/23/20 06/25/24 injection, auto-injector acyclovir 800 mg tablet 800 mg PO DAILY 04/27/24 06/25/24 Previous Rx's Medication Instructions Recorded albuterol sulfate 90 mcg/actuation 1 puff inhalation Q6H PRN 06/25/24 aerosol inhaler (Ventolin HFA) Shortness Of Breath #8.5 grams dextroamphetamine-amphetamine 10 10 mg PO .afternoon #30 tabs 06/25/24 mg tablet (Adderall) dextroamphetamine-amphetamine 20 40 mg (2 x 20 mg) PO DAILY #60 tabs 06/25/24 mg tablet (Adderall) doxepin 25 mg capsule 25 mg PO BEDTIME PRN insomnia #30 06/25/24 caps meloxicam 15 mg tablet 15 mg PO DAILY PRN pain (scale 06/25/24 score 1-3) #30 tabs pregabalin 300 mg capsule 300 mg PO BID #60 caps 06/25/24 clonazepam 1 mg tablet 1 mg PO DAILY PRN panic attack(s) 06/26/24 #5 tabs Allergies Allergy/AdvReac Type Severity Reaction Status Date / Time gluten Allergy Severe Anaphylaxis Verified 06/23/24 11:15 sumatriptan Allergy Severe Hives, Verified 06/23/24 11:15 throat closing venlafaxine [From Effexor] Allergy Severe Hives, Verified 06/23/24 11:15 throat closing, fever beef derived (bovine) Allergy Intermediate Hives Verified 06/23/24 11:15 codeine Allergy Intermediate Verified 06/23/24 11:15 [From Tylenol-Codeine #3] milk Allergy Intermediate Hives Verified 06/23/24 11:15 Iodinated Contrast Media Allergy Mild Verified 06/25/24 09:31 Sulfa (Sulfonamide Allergy Mild Rash Verified 06/23/24 11:15 Antibiotics) levonorgestrel AdvReac Mood swings Verified 06/23/24 11:15 Review of Systems Review of Systems ROS Unobtainable: All systems reviewed & are unremarkable except as noted in HPI and below Patient History Medical History Multiple food allergies CMC arthritis Asthma Genital HSV PCOS (polycystic ovarian syndrome) Bipolar 2 disorder PTSD (post-traumatic stress disorder) Insomnia ADHD Fibromyalgia Halitosis Tonsil stone Earache Facial pain Sinusitis Hearing loss Surgical History S/P section (12/11/18) Social History household members: significant other and children Smoking Status: Current every day smoker alcohol intake: current Smoking Status: Current every day smoker alcohol intake frequency: holidays/special occasions only Exam Narrative Exam Narrative: GENERAL: Alert and oriented x three, well-appearing female in mild distress HEENT: Head normocephalic, atraumatic, EOMI, pupils reactive, face symmetric, moist mucous membranes NECK: Supple, full range of motion CARDIOVASCULAR: Regular rate and rhythm without murmurs, rubs or gallops. No edema. No JVD. RESPIRATORY: Breath sounds equal bilaterally, no wheezes rales or rhonchi. No tachypnea or accessory muscle use ABDOMEN: Soft, nontender. Normoactive bowel sounds all 4 quadrants. No guarding or rebound, rigidity, no mass : No CVA tenderness EXTREMITIES: Normal range of motion, no clubbing or edema. Neurovascularly intact NEUROLOGICAL: Cranial nerves II through XII grossly intact. Moving all extremities SKIN: Warm, dry, no petechiae, no rashes or lesions. Initial Vital Signs Initial Vital Signs: Vital Signs Temperature 98.8 F 07/13/24 17:27 Pulse Rate 86 07/13/24 17:27 Respiratory Rate 16 07/13/24 17:27 Blood Pressure 132/83 07/13/24 17:27 Pulse Oximetry 98 07/13/24 17:27 Oxygen Delivery Method Room Air 07/13/24 17:27 Course Orders Ordered: ED Orders 07/13/24 20:00 Trop I [Troponin I] Stat 07/13/24 20:31 EKG-12 Lead Routine Discontinued Medications Diphenhydramine HCl (Diphenhydramine 50 Mg/Ml Vial) 50 mg IV NOW ONE Stop: 07/13/24 19:32 Last Admin: 07/13/24 19:42 Dose: 50 mg Documented By: Sodium Chloride (Normal Saline 0.9%) 1,000 mls @ 1,000 mls/hr IV BOLUS ONE Stop: 07/13/24 20:30 Last Infusion: 07/13/24 21:17 Dose: Infused Documented By: Admin: 07/13/24 19:42 Dose: 1,000 mls/hr Documented By: Methylprednisolone (Methylprednisolone 125 Mg/2 Ml Vial) 125 mg IV NOW ONE Stop: 07/13/24 19:32 Last Admin: 07/13/24 19:42 Dose: 125 mg Documented By: Vital Signs Vital signs: Vital Signs - 8 hr 07/13/24 21:00 07/13/24 21:00 Pulse Rate 77 Blood Pressure 120/69 Pulse Oximetry 96 MDM - Arrhythmia/Palpitations Lab Data 07/13/24 17:51 07/13/24 17:51 Labs: Lab Results 07/13/24 07/13/24 Range/Units 17:51 20:00 WBC 5.5 (4.5-11.0) X10^3/uL RBC 4.18 (4.0-5.2) X10^6/uL Hgb 12.8 (12.0-16.0) g/dL Hct 38.0 (36-46) % MCV 90.7 (80-100) fL MCH 30.5 (26-34) PG MCHC 33.7 (30-36) % RDW 12.7 (11.6-14.8) % Plt Count 212 (150-400) X10^3/uL Neut % (Auto) 55.8 (50-75) % Lymph % (Auto) 33.0 (25-40) % [place] % (Auto) 8.1 (3-14) % Eos % (Auto) 2.3 (2-4) % Baso % (Auto) 0.8 (0-2) % Neut # (Auto) 3100 (2084-5845) /uL Lymph # (Auto) 1800 (6947-4233) /uL [place] # (Auto) 500 (0-900) /uL Eos # (Auto) 100 (0-450) /uL Baso # (Auto) 0 (0-100) /uL PT 11.1 (9.4-12.5) SECONDS INR 1.0 (0.9-1.3) APTT 39 H (25.1-36.5) SECONDS D-Dimer < 215 (<500) ng/ml Sodium 139 (137-145) mmol/L Potassium 3.7 (3.4-5.1) mmol/L Chloride 106 (98-107) mmol/L Carbon Dioxide 30 (22-32) mmol/L BUN 9 (7-17) mg/dL Creatinine 0.73 (0.52-1.04) mg/dL Estimated GFR > 60 (>60) mL/min BUN/Creatinine Ratio 12.3 (6-22) Glucose 96 (70-100) mg/dL Calcium 9.3 (8.4-10.2) mg/dL Magnesium 2.0 (1.6-2.3) mg/dL Total Bilirubin 0.4 (0.2-1.3) mg/dL AST 25 (14-36) IU/L ALT 18 (<35) IU/L Alkaline Phosphatase 45 (38-126) U/L Total Creatine Kinase 109 (30-135) U/L Troponin I < 0.012 < 0.012 (0.01-0.034) ng/mL NT-Pro-B Natriuret Pep 28 (<125) pg/mL Total Protein 6.8 (6.3-8.2) g/dL Albumin 4.0 (3.5-5.0) g/dL Globulin 2.8 (1.7-4.1) g/dL Albumin/Globulin Ratio 1.4 (1.0-2.8) Lipase 91 (23-300) U/L Imaging Data Chest x-ray: [employer]: Trista Porter??28??F??1995 ? Allergy/Adv: gluten, sumatriptan, venlafaxine, beef derived (bovine), codeine, milk, Iodinated Contrast Media, Sulfa (Sulfonamide Antibiotics), levonorgestrel (More??) Close Chest X-Ray (Signed) Brian Blunt - 07/13/24 Abdomen/Pelvis CT (Signed) Joy Abdul - 06/23/24 Pelvis Ultrasound (Signed) Jai Ortiz - 05/02/[address] (Signed) Sourav Pate - 04/11/20 Telemetry Strips 11/26/18 Ultrasound (Signed) Jani Valladares - 08/04/18 Launch?[address] [address] XRay Report Signed Patient: Trista Porter MR#: [id number] : 1995 Acct:[id number] Age/Sex: 28 / F Date of Service: 07/13/24 Loc: ED Accession Number: [id number] Procedure: XR chest 1V Ordering Provider: Barbara Busby D.O. PROCEDURE: XR CHEST 1V INDICATIONS: chest pain TECHNIQUE: One view of the chest was acquired. COMPARISON: None. FINDINGS: Surgical changes and devices: None. Lungs and pleura: Lungs are clear. No pleural effusions or pneumothorax. Mediastinum: Mediastinal contours appear normal. Heart size is normal. Bones and chest wall: No suspicious bony lesions. Overlying soft tissues appear unremarkable. IMPRESSION: No acute cardiopulmonary abnormalities or focal consolidation. Dictated by: Brian Blunt M.D. on 07/13/2024 at 18:56 Approved by: Brian Blunt M.D. on 07/13/2024 at 18:57 CT scan - chest: Radiologist's Impresson: [place] [address] CT Scan Report Signed Patient: Trista Porter MR#: [id number] : 1995 Acct:[id number] Age/Sex: 28 / F Date of Service: 07/13/24 Loc: ED Accession Number: [id number] Procedure: CT angio chest PE protocol Ordering Provider: Shawna Robertson D.O. PROCEDURE: CT ANGIO CHEST PE PROTOCOL INDICATIONS: chest pain, palpitations, tachycardia TECHNIQUE: After the administration of intravenous contrast, 2 mm thick sections acquired from the pulmonary apices to the posterior costophrenic angles. 3-dimensional maximum intensity projection (MIP) coronal and sagittal reformats were then acquired through the thorax. For radiation dose reduction, the following was used: automated exposure control, adjustment of mA and/or kV according to patient size. COMPARISON: None. FINDINGS: Image quality: Diagnostic. Pulmonary arteries: Pulmonary arteries are normal in size, and demonstrate no intraluminal filling defects to suggest central pulmonary embolism. Lower Neck: No enlarged lymph nodes. Thyroid: No thyroid nodules which require sonographic follow up, per consensus guidelines. Axillae: No enlarged lymph nodes. Chest Wall: Unremarkable. Bones: Unremarkable. Lungs and Pleura: No pneumothorax or pleural effusions. No consolidation or suspicious nodules. Heart: Heart size is normal. No pericardial effusion. Thoracic Vessels: No aortic aneurysm. Mediastinum and Rbeanna: No enlarged lymph nodes. Esophagus: No wall thickening. No hiatal hernia. Upper Abdomen: Visualized upper abdomen solid organs and bowel loops appear normal. IMPRESSION: No pulmonary embolus. No acute cardiopulmonary process. Approved by: Saira Menjivar M.D.,Ph.D. on 07/13/2024 at 20:57 ECG Data Attestation: I personally reviewed and interpreted this ECG as follows: Prior ECG tracings: not available for review Interpretation: Sinus tachycardia rate of 126 ND 142 QRS 80 QTC of 466, no ST elevation. Repeat EKG shows normal sinus rhythm rate of 68 ND 136 QRS of 90 QTC of 416, no acute ST elevation depression noted. MDM Narrative Medical decision making narrative: 28-year-old female presents with complaint of chronic orthostatic symptoms triage note meds she was sent for possible pots evaluation but she describes chest pressure shortness of breath with palpitations and a fast heart rate sometimes an elevated heart rate even resting and I suspect she may be having possible cardiac arrhythmia such as SVT. Episodes have self terminated most recently. Chest x-ray shows no acute change EKG shows sinus tach, rate of 126 ND 142 QRS 80 QTC of 466. No acute ST elevation, repeat EKG does not show depression but T-waves slightly inverted in lateral leads. On the initial EKG not on repeat. Patient did not have any chest pain or pressure with her initial EKG. She did note that her heart rate felt very fast like she was having palpitations was on the tail end of this when they obtained the initial EKG. Labs show white count of 5.5 hemoglobin of 12.8, platelets of 212, coags are negative D-dimer less than 215. Electrolytes are normal BUN creatinine 0.73 glucose is less than 0.012 with a BNP of 28 repeat troponin is less than 0.012 CT angio of the chest shows no acute PE or cardiopulmonary process. Discussed with patient suspicion for ACS is lower higher suspicion for possible SVT or other cardiac arrhythmia we discussed keeping the patient was observation overnight she did have some ST changes on her EKG but she prefers to return home. She does have upcoming follow up with primary care already in place. Discharge Plan Departure Patient Disposition: Home Clinical Impression: Atypical chest pain Activity Restrictions/Additional Instructions: Your workup today did not show any acute cardiac event you were little tachycardic initially had some changes on your EKG. We did discuss keeping you overnight for chest pain observation but as you have elected to return home please follow up with your primary care shortly for re-evaluation. Other potential causes of your pain are cardiac arrhythmia such as SVT. I would recommend talking with your physician for further workup for this with a Holter monitor or ZIO patch and possibly ECHO. I hope you continue to feel improved you can return at any time. Please return if you have new or worsening chest pain, shortness of breath, lightheadedness or passing out, new swelling of your extremities, coughing up blood, persistent vomiting or other new or concerning changes. Prescriptions: No Action acyclovir 800 mg tablet 800 mg PO DAILY dextroamphetamine-amphetamine [Adderall] 10 mg tablet 10 mg PO .afternoon Qty: 30 0RF pregabalin 300 mg capsule 300 mg PO BID Qty: 60 0RF albuterol sulfate [Ventolin HFA] 90 mcg/actuation HFA aerosol inhaler 1 puff INHALATION Q6H PRN (Reason: Shortness Of Breath) Qty: 8.5 2RF doxepin 25 mg capsule 25 mg PO BEDTIME PRN (Reason: insomnia) Qty: 30 0RF meloxicam 15 mg tablet 15 mg PO DAILY PRN (Reason: pain (scale score 1-3)) Qty: 30 3RF dextroamphetamine-amphetamine [Adderall] 20 mg tablet 40 mg PO DAILY Qty: 60 0RF clonazepam 1 mg tablet 1 mg PO DAILY PRN (Reason: panic attack(s)) Qty: 5 0RF epinephrine 0.3 mg/0.3 mL auto-injector 0.3 mg IM PRN PRN (Reason: Anaphylaxis) Referrals: Hilda Drake MD [Primary Care Provider] - Stand Alone Forms: Patient Portal/API/Survey
[2024-07-13 19:22] VITALS: BP 140/70; PULSE 69; RESP 18; O2SAT 97
[2024-07-13 19:30] VITALS: PULSE 75; O2SAT 76
--- NOTE | 2024-07-13 19:31 | DI.CT.S_ITS ---
PROCEDURE: CT ANGIO CHEST PE PROTOCOL INDICATIONS: chest pain, palpitations, tachycardia TECHNIQUE: After the administration of intravenous contrast, 2 mm thick sections acquired from the pulmonary apices to the posterior costophrenic angles. 3-dimensional maximum intensity projection (MIP) coronal and sagittal reformats were then acquired through the thorax. For radiation dose reduction, the following was used: automated exposure control, adjustment of mA and/or kV according to patient size. COMPARISON: None. FINDINGS: Image quality: Diagnostic. Pulmonary arteries: Pulmonary arteries are normal in size, and demonstrate no intraluminal filling defects to suggest central pulmonary embolism. Lower Neck: No enlarged lymph nodes. Thyroid: No thyroid nodules which require sonographic follow up, per consensus guidelines. Axillae: No enlarged lymph nodes. Chest Wall: Unremarkable. Bones: Unremarkable. Lungs and Pleura: No pneumothorax or pleural effusions. No consolidation or suspicious nodules. Heart: Heart size is normal. No pericardial effusion. Thoracic Vessels: No aortic aneurysm. Mediastinum and Breanna: No enlarged lymph nodes. Esophagus: No wall thickening. No hiatal hernia. Upper Abdomen: Visualized upper abdomen solid organs and bowel loops appear normal. IMPRESSION: No pulmonary embolus. No acute cardiopulmonary process. Approved by: Saira Menjivar M.D.,Ph.D. on 07/13/2024 at 20:57
[2024-07-13] MEDS: methylPREDNISolone 125 MG/2 ML VIAL IV (19:42)
[2024-07-13] MEDS: SODIUM CHLORIDE 0.9% 1,000 ML 1000 ML IV (19:42)
[2024-07-13] MEDS: diphenhydrAMINE 50 MG/ML VIAL IV (19:42)
[2024-07-13 20:16] VITALS: BP 128/82; PULSE 66; O2SAT 97
[2024-07-13 20:29] LABS: Troponin I < 0.012 ng/mL (0.01-0.034)
[2024-07-13 20:30] VITALS: BP 125/83; PULSE 66; O2SAT 100
--- NOTE | 2024-07-13 20:31 | EKG_ITS ---
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
[2024-07-13 21:00] VITALS: BP 120/69; PULSE 77; O2SAT 96
== END 2024-07-13 21:36 | disposition home or self-care (01) ==
PROVIDERS: Emergency Medicine; Emergency Provider Emergency Medicine; PCP Family Medicine
DX: R07.89 Other chest pain (principal); R06.02 Shortness of breath; R00.2 Palpitations; R00.0 Tachycardia, unspecified
CPT/HCPCS: 36415; 71045; 71275; 80053; 82550; 83690; 83735; 83880; 84484; 85025; 85379; 85610; 85730; 93005; 96361; 96374; 96375; 99284; J1200; J2919; Q9967

== ENCOUNTER → 2024-07-23 07:55 | Outpatient (CLI) | payer OTHER, SELFPAY | PROVIDERS: PCP Family Medicine; Referring Provider Family Medicine; Visit Provider Family Medicine | DX: R07.89 Other chest pain (principal) | CPT/HCPCS: 93242; 93244 ==

== ENCOUNTER → 2024-10-19 08:30 | Outpatient (CLI) | payer OTHER, SELFPAY ==
--- NOTE | 2024-10-19 17:33 | DI.NM.S_ITS ---
DATE OF SERVICE: 10/19/2024 EXERCISE STRESS TEST INDICATIONS: Chest pain, history of ADHD, fibromyalgia. CARDIAC STRESS: The patient underwent exercise stress test under the supervision of an attending staff. She walked on Candido protocol for only 1 minute and 35 seconds, achieved maximum heart rate of 145, which was 76% of target heart rate. Resting blood pressure 112/78 and peak blood pressure 120/89. Her heart rate went up from resting 74 and just upon standing to 121 beats per minute. Baseline rhythm was sinus and some repolarization changes. Upon standing, the patient developed some downsloping ST depression in the inferior leads with T-wave inversion as well as T-wave inversion in septal leads. During stress, the T-wave inversion and some downsloping got more pronounced in inferior leads, as well as in anterior leads, which quickly recovered in recovery to the baseline within 1 minute. The patient felt shortness of breath and fatigue. No chest pain. CONCLUSION: This is an inconclusive stress test for inducible ischemia, however, it is not a normal stress test. Very diminished exercise tolerance. The patient just walked on Candido protocol for 1 minute 35 seconds and had shortness of breath and fatigue. Achieved 76% of target heart rate. However, heart rate increased from 74 to 121 just from resting to standing position. She may have underlying POTS. Nonspecific ST-T changes upon standing, which got more pronounced during exercise as stated above. No other complex arrhythmias. No chest pain. Correlate clinically. Consider workup to rule out POTS and if needed repeat exercise stress test with imaging modality, like exercise stress echo. Trista Porter - JENN/soledad/BERKLEY doc#: [id number]/job#: [id number] dd: 10/19/2024 17:18:00 dt: 10/19/2024 17:23:00 DICTATING MD/COPIES TO: Zahra Prater MD COPIES MNE: DEB;
== END ==
PROVIDERS: PCP Family Medicine; Referring Provider Family Medicine; Visit Provider Family Medicine
DX: R94.39 Abnormal result of other cardiovascular function study (principal); R07.9 Chest pain, unspecified
CPT/HCPCS: 93017